=== PATIENT | female | born 1980 | race Caucasian/White ===

== ENCOUNTER 2016-06-12 23:20 | Emergency (ER) | payer OTHER ==
[~2016-06-12] VITALS: Ht 180.3 cm; Wt 68.0 kg
[~2016-06-12 23:20] MED LIST: ALBUTEROL0.09 MG/A2 INH; AMOXICILLIN500 MG PO; ATARAX,VISTARIL50 MG PO; BENADRYL25 M2 PO; CARBIDOPA/LEVOD1 TA1 PO; CEFADROXIL500 M1 PO; CIPROFLOXACIN500 MG PO; DELTASONE20 MG PO; DIFLUCAN150 MG PO; MOTRIN800 MG PO; PROAIR HFA0.09 MG/AC IH; ROBITUSSIN-AC 160 ML PO; SEPTRA DS 800 M1 TAB PO; ULTRAM50 MG PO; VIBRAMYCIN100 MG PO; VICODIN 5/500 505 MG PO; ZOFRAN 4 MG ED2 TAB PO
[2016-06-12 23:26] VITALS: BP 152/94
[2016-06-12] MEDS ORDERED: SUBOXONE 8 MG-1 EACH SL (23:27)
== END 2016-06-13 00:24 | disposition home or self-care (01) ==
LOC: ED 23:20
DX: S00.83XA Contusion of other part of head, initial encounter (principal); M54.2 Cervicalgia; F19.10 Other psychoactive substance abuse, uncomplicated; F17.200 Nicotine dependence, unspecified, uncomplicated; Z79.899 Other long term (current) drug therapy; Y04.0XXA Assault by unarmed brawl or fight, initial encounter; Y93.9 Activity, unspecified; Y92.091 Bathroom in other non-institutional residence as the place of occurrence of the external cause; Y99.9 Unspecified external cause status

== ENCOUNTER 2016-08-29 14:51 | Inpatient (IN) | payer OTHER ==
[~2016-08-29] VITALS: Ht 180.3 cm; Wt 74.4 kg
[~2016-08-29 14:51] MED LIST changes: +SUBOXONE 8 MG-1 EACH SL
[2016-08-29 15:00] VITALS: BP 127/84
[2016-08-29] MEDS ORDERED: CLINDAMYCIN150 MG PO (15:20)
[2016-08-29 17:27] LABS: BASO % 0.7 % (0.0-1.0); EOS # 0.2 10*3/uL (0.0-0.4); EOS % 2.9 % (1.0-4.0); HEMATOCRIT 37.2 % (37.0-47.0); HEMOGLOBIN 12.2 g/dl (12.0-16.0); LYMPH # 1.5 10*3/uL (1.3-4.4); MEAN CELL VOLUME 97.6 fl (81.0-99.0); MEAN CORPUSCULAR HGB CONC 32.8 g/dl (33.0-37.0); MEAN PLATELET VOLUME 9.6 fl (9.6-12.3); MONO # 0.7 10*3/uL (0.1-1.0); MONO % 12.5 % (3.0-9.0); NEUT # 3.2 10*3/uL (2.3-7.9); NEUT % 57.7 % (47.0-73.0); PLATELET COUNT AUTOMATED 250 10*3/uL (130-400); RED BLOOD COUNT 3.81 10*6/uL (4.10-5.10); RED CELL DISTRI WIDTH 14.1 % (0-14.5); WHITE BLOOD COUNT 5.6 10*3/uL (4.8-10.8)
[2016-08-29 17:45] LABS: ALBUMIN 3.4 gm/dl (3.1-4.5); ALKALINE PHOSPHATASE 94 U/L (45-117); BILIRUBIN, TOTAL 0.4 mg/dl (0.2-1.0); BUN 7 mg/dl (7-24); CARBON DIOXIDE 23 mmol/L (21-32); CHLORIDE 106 mmol/L (98-107); EST GLOM FILT AFRICAN AMERICAN > 60 ml/min; GLUCOSE 102 mg/dL (65-99); POTASSIUM 3.9 mmol/L (3.5-5.1); SGOT/AST 71 IU/L (3-35); SODIUM 140 mmol/L (136-145)
[2016-08-29 17:46] LABS: SGPT/ALT 57 U/L (12-78)
[2016-08-29 20:07] VITALS: BP 127/84
[2016-08-29 20:14] VITALS: BP 116/69
[2016-08-30] VITALS: BP 129/70
[2016-08-30 08:10] VITALS: BP 121/70
[2016-08-30 12:19] VITALS: BP 121/77
[2016-08-30 16:10] VITALS: BP 114/77
[2016-08-30 19:53] VITALS: BP 131/81
[2016-08-31] VITALS: BP 106/65
[2016-08-31 07:01] LABS: BASO # 0.1 10*3/uL (0.0-0.1); BASO % 0.9 % (0.0-1.0); EOS # 0.3 10*3/uL (0.0-0.4); EOS % 4.4 % (1.0-4.0); HEMATOCRIT 34.1 % (37.0-47.0); LYMPH # 2.3 10*3/uL (1.3-4.4); LYMPH % 40.3 % (27.0-41.0); MEAN CELL VOLUME 98.3 fl (81.0-99.0); MEAN CORPUSCULAR HGB 31.7 pg (27.0-31.0); MEAN CORPUSCULAR HGB CONC 32.3 g/dl (33.0-37.0); MEAN PLATELET VOLUME 10.4 fl (9.6-12.3); MONO # 0.6 10*3/uL (0.1-1.0); MONO % 11.2 % (3.0-9.0); NEUT # 2.5 10*3/uL (2.3-7.9); NEUT % 42.8 % (47.0-73.0); PLATELET COUNT AUTOMATED 225 10*3/uL (130-400); RED BLOOD COUNT 3.47 10*6/uL (4.10-5.10); RED CELL DISTRI WIDTH 14.3 % (0-14.5); WHITE BLOOD COUNT 5.7 10*3/uL (4.8-10.8)
[2016-08-31 07:13] LABS: ALBUMIN 2.8 gm/dl (3.1-4.5); ALKALINE PHOSPHATASE 70 U/L (45-117); BILIRUBIN, TOTAL 0.2 mg/dl (0.2-1.0); BUN 6 mg/dl (7-24); CARBON DIOXIDE 22 mmol/L (21-32); CHLORIDE 114 mmol/L (98-107); EST GLOM FILT AFRICAN AMERICAN > 60 ml/min; GLUCOSE 84 mg/dL (65-99); POTASSIUM 4.2 mmol/L (3.5-5.1); SGOT/AST 27 IU/L (3-35); SGPT/ALT 35 U/L (12-78); SODIUM 147 mmol/L (136-145); TOTAL PROTEIN 6.8 gm/dL (6.4-8.2); VANCOMYCIN TROUGH 13.6 ug/mL (10-20)
[2016-08-31 08:00] VITALS: BP 102/78
[2016-08-31 12:00] VITALS: BP 120/77
[2016-08-31] MEDS ORDERED: CLINDAMYCIN HC300 MG PO (14:15)
[2016-09-03 10:23] LABS: HEPATITIS C VIRUS ANTIBODY >11.0 s/co (0.0-0.9)
== END 2016-08-31 14:57 | disposition home or self-care (01) | DRG 871 ==
LOC: ED 14:51 → EDHOLD 17:47 → 4E 18:27
PROVIDERS: Internal Medicine; Nurse Practitioner Family
DX: A41.9 Sepsis, unspecified organism (principal); E43 Unspecified severe protein-calorie malnutrition; L03.211 Cellulitis of face; R00.1 Bradycardia, unspecified; F17.210 Nicotine dependence, cigarettes, uncomplicated; J45.909 Unspecified asthma, uncomplicated; R03.0 Elevated blood-pressure reading, without diagnosis of hypertension; R73.9 Hyperglycemia, unspecified; Z71.6 Tobacco abuse counseling; Z86.718 Personal history of other venous thrombosis and embolism; Z82.49 Family history of ischemic heart disease and other diseases of the circulatory system; Z80.8 Family history of malignant neoplasm of other organs or systems; S02.401D Maxillary fracture, unspecified side, subsequent encounter for fracture with routine healing

== ENCOUNTER 2016-09-23 10:57 | Emergency (ER) | payer OTHER ==
[~2016-09-23] VITALS: Wt 68.0 kg
[~2016-09-23 10:57] MED LIST changes: +CLINDAMYCIN HC300 MG PO; +CLINDAMYCIN150 MG PO
[2016-09-23 11:40] VITALS: BP 126/77
[2016-09-23 12:44] LABS: BILIRUBIN NEGATIVE (NEGATIVE); BLOOD NEGATIVE (NEGATIVE); CLARITY CLEAR (CLEAR); COLOR YELLOW (YELLOW); GLUCOSE NEGATIVE (NEGATIVE); KETONE NEGATIVE (NEGATIVE); LEUKO ESTERASE NEGATIVE (NEGATIVE); NITRITE NEGATIVE (NEGATIVE); PROTEIN NEGATIVE (NEGATIVE); SPECIFIC GRAVITY 1.015 (1.005-1.030); UROBILINOGEN 0.2 E.U./dl (0.2-1.0)
[2016-09-23 12:55] LABS: BACTERIA TRACE
[2016-09-23 12:56] LABS: URINE REFLEX COMMENT NO (NO); WBC 0-2 wbc/hpf (0-5)
[2016-09-23 12:59] LABS: BASO % 0.8 % (0.0-1.0); EOS # 0.1 10*3/uL (0.0-0.4); EOS % 2.5 % (1.0-4.0); HEMATOCRIT 38.5 % (37.0-47.0); HEMOGLOBIN 12.8 g/dl (12.0-16.0); LYMPH # 2.1 10*3/uL (1.3-4.4); MEAN CELL VOLUME 95.5 fl (81.0-99.0); MEAN CORPUSCULAR HGB 31.8 pg (27.0-31.0); MEAN CORPUSCULAR HGB CONC 33.2 g/dl (33.0-37.0); MEAN PLATELET VOLUME 10.2 fl (9.6-12.3); MONO # 0.7 10*3/uL (0.1-1.0); MONO % 13.6 % (3.0-9.0); NEUT # 2.2 10*3/uL (2.3-7.9); NEUT % 41.9 % (47.0-73.0); PLATELET COUNT AUTOMATED 274 10*3/uL (130-400); RED BLOOD COUNT 4.03 10*6/uL (4.10-5.10); RED CELL DISTRI WIDTH 12.6 % (0-14.5); WHITE BLOOD COUNT 5.2 10*3/uL (4.8-10.8)
[2016-09-23 13:14] LABS: ALBUMIN 3.3 gm/dl (3.1-4.5); ALKALINE PHOSPHATASE 73 U/L (45-117); BILIRUBIN, TOTAL 0.2 mg/dl (0.2-1.0); BUN 11 mg/dl (7-24); CARBON DIOXIDE 21 mmol/L (21-32); CHLORIDE 110 mmol/L (98-107); EST GLOM FILT AFRICAN AMERICAN > 60 ml/min; GLUCOSE 69 mg/dL (65-99); POTASSIUM 4.6 mmol/L (3.5-5.1); SGOT/AST 52 IU/L (3-35); SGPT/ALT 33 U/L (12-78); SODIUM 143 mmol/L (136-145)
== END 2016-09-23 15:39 | disposition home or self-care (01) ==
LOC: ED 10:57
PROVIDERS: Nurse Practitioner Family
DX: R51 Headache (principal); R40.0 Somnolence; F19.10 Other psychoactive substance abuse, uncomplicated; F17.200 Nicotine dependence, unspecified, uncomplicated; J45.909 Unspecified asthma, uncomplicated; Z90.89 Acquired absence of other organs; Z86.718 Personal history of other venous thrombosis and embolism; Z79.899 Other long term (current) drug therapy

== ENCOUNTER 2016-10-01 09:45 | Emergency (ER) | payer OTHER ==
[~2016-10-01] VITALS: Wt 68.0 kg
[2016-10-01 09:56] VITALS: BP 132/84
[2016-10-01 10:42] LABS: BASO # 0.1 10*3/uL (0.0-0.1); EOS # 0.3 10*3/uL (0.0-0.4); EOS % 3.5 % (1.0-4.0); HEMATOCRIT 36.7 % (37.0-47.0); HEMOGLOBIN 12.2 g/dl (12.0-16.0); LYMPH # 2.7 10*3/uL (1.3-4.4); LYMPH % 38.4 % (27.0-41.0); MEAN CELL VOLUME 95.1 fl (81.0-99.0); MEAN CORPUSCULAR HGB 31.6 pg (27.0-31.0); MEAN CORPUSCULAR HGB CONC 33.2 g/dl (33.0-37.0); MONO # 0.6 10*3/uL (0.1-1.0); NEUT # 3.4 10*3/uL (2.3-7.9); NEUT % 47.8 % (47.0-73.0); PLATELET COUNT AUTOMATED 284 10*3/uL (130-400); RED BLOOD COUNT 3.86 10*6/uL (4.10-5.10); RED CELL DISTRI WIDTH 12.8 % (0-14.5); WHITE BLOOD COUNT 7.1 10*3/uL (4.8-10.8)
[2016-10-01 11:00] LABS: ALBUMIN 3.3 gm/dl (3.1-4.5); ALKALINE PHOSPHATASE 64 U/L (45-117); BILIRUBIN, TOTAL 0.2 mg/dl (0.2-1.0); BUN 8 mg/dl (7-24); CARBON DIOXIDE 25 mmol/L (21-32); CHLORIDE 110 mmol/L (98-107); EST GLOM FILT AFRICAN AMERICAN > 60 ml/min; GLUCOSE 88 mg/dL (65-99); POTASSIUM 4.3 mmol/L (3.5-5.1); SGOT/AST 43 IU/L (3-35); SGPT/ALT 31 U/L (12-78); SODIUM 143 mmol/L (136-145); TOTAL PROTEIN 7.7 gm/dL (6.4-8.2)
[2016-10-01 11:07] LABS: TROPONIN I < 0.015 ng/ml (<0.045)
[2016-10-01 12:20] LABS: BILIRUBIN NEGATIVE (NEGATIVE); BLOOD NEGATIVE (NEGATIVE); CLARITY CLOUDY (CLEAR); COLOR YELLOW (YELLOW); GLUCOSE NEGATIVE (NEGATIVE); KETONE NEGATIVE (NEGATIVE); LEUKO ESTERASE NEGATIVE (NEGATIVE); NITRITE NEGATIVE (NEGATIVE); PROTEIN NEGATIVE (NEGATIVE); SPECIFIC GRAVITY 1.025 (1.005-1.030); UROBILINOGEN 0.2 E.U./dl (0.2-1.0)
[2016-10-01 12:30] LABS: BACTERIA 1+; URINE REFLEX COMMENT NO (NO)
== END 2016-10-01 12:46 | disposition home or self-care (01) ==
LOC: ED 09:45
PROVIDERS: Nurse Practitioner Family
DX: F41.9 Anxiety disorder, unspecified (principal); R51 Headache; R07.89 Other chest pain; R11.2 Nausea with vomiting, unspecified; F17.200 Nicotine dependence, unspecified, uncomplicated; Z79.899 Other long term (current) drug therapy

== ENCOUNTER 2017-03-12 11:13 | Emergency (ER) | payer OTHER ==
[~2017-03-12] VITALS: Wt 71.2 kg
[2017-03-12 11:23] VITALS: BP 107/77
[2017-03-12 11:54] LABS: BILIRUBIN NEGATIVE (NEGATIVE); BLOOD 3+ (NEGATIVE); CLARITY CLEAR (CLEAR); COLOR YELLOW (YELLOW); GLUCOSE NEGATIVE (NEGATIVE); KETONE NEGATIVE (NEGATIVE); LEUKO ESTERASE NEGATIVE (NEGATIVE); NITRITE NEGATIVE (NEGATIVE); PH 5.5 (5.0-9.0); UROBILINOGEN 0.2 E.U./dl (0.2-1.0)
[2017-03-12] MEDS ORDERED: CYCLOBENZAPRINE5 M3 PO (14:48)
== END 2017-03-12 11:50 | disposition home or self-care (01) ==
LOC: ED 11:13
PROVIDERS: Nurse Practitioner
DX: S06.0X0A Concussion without loss of consciousness, initial encounter (principal); S39.92XA Unspecified injury of lower back, initial encounter; S19.9XXA Unspecified injury of neck, initial encounter; M25.512 Pain in left shoulder; F17.200 Nicotine dependence, unspecified, uncomplicated; W11.XXXA Fall on and from ladder, initial encounter; Y93.89 Activity, other specified; Y92.89 Other specified places as the place of occurrence of the external cause; Y99.8 Other external cause status

== ENCOUNTER 2017-03-19 10:04 | Emergency (ER) | payer OTHER ==
[~2017-03-19] VITALS: Ht 180.3 cm; Wt 70.3 kg
[~2017-03-19 10:04] MED LIST changes: +CYCLOBENZAPRINE5 M3 PO
[2017-03-19 10:14] VITALS: BP 135/43
[2017-03-19] MEDS ORDERED: 'PARAFON FORTE500 M1 PO (12:09)
[2017-03-19] MEDS ORDERED: NAPROSYN500 MG PO (12:09)
== END 2017-03-19 12:26 | disposition home or self-care (01) ==
LOC: ED 10:04
DX: S13.9XXA Sprain of joints and ligaments of unspecified parts of neck, initial encounter (principal); M79.622 Pain in left upper arm; R03.0 Elevated blood-pressure reading, without diagnosis of hypertension; F17.200 Nicotine dependence, unspecified, uncomplicated; Z86.718 Personal history of other venous thrombosis and embolism; W11.XXXA Fall on and from ladder, initial encounter; Y93.89 Activity, other specified; Y92.9 Unspecified place or not applicable; Y99.9 Unspecified external cause status

== ENCOUNTER → 2017-06-18 | Outpatient (CLI) | payer OTHER ==
[~2017-06-18] MED LIST changes: +'PARAFON FORTE500 M1 PO; +NAPROSYN500 MG PO
== END | disposition home or self-care (01) ==
LOC: RESCLI 02:14
DX: Z00.8 Encounter for other general examination (principal); L98.491 Non-pressure chronic ulcer of skin of other sites limited to breakdown of skin; F41.9 Anxiety disorder, unspecified; J45.909 Unspecified asthma, uncomplicated; Z72.0 Tobacco use; Z71.6 Tobacco abuse counseling

== ENCOUNTER 2017-11-29 19:55 | Emergency (ER) | payer OTHER ==
[~2017-11-29] VITALS: Ht 177.8 cm
[2017-11-29 20:46] LABS: HEMATOCRIT 30.8 % (37.0-47.0); HEMOGLOBIN 10.5 g/dl (12.0-16.0); MEAN CELL VOLUME 91.7 fl (81.0-99.0); MEAN CORPUSCULAR HGB 31.3 pg (27.0-31.0); MEAN CORPUSCULAR HGB CONC 34.1 g/dl (33.0-37.0); MEAN PLATELET VOLUME 10.3 fl (9.6-12.3); PLATELET COUNT AUTOMATED 266 10*3/uL (130-400); RED BLOOD COUNT 3.36 10*6/uL (4.10-5.10); RED CELL DISTRI WIDTH 14.2 % (0-14.5); WHITE BLOOD COUNT 11.3 10*3/uL (4.8-10.8)
[2017-11-29 21:01] LABS: ALBUMIN 2.2 gm/dl (3.1-4.5); ALKALINE PHOSPHATASE 59 U/L (45-117); BUN 16 mg/dl (7-24); CHLORIDE 99 mmol/L (98-107); CREATININE 1.33 mg/dL (0.55-1.02); LIPASE 258 U/L (73-393); POTASSIUM 3.2 mmol/L (3.5-5.1); SGOT/AST 33 IU/L (3-35); SGPT/ALT 29 U/L (12-78); SODIUM 132 mmol/L (136-145); TOTAL PROTEIN 7.2 gm/dL (6.4-8.2)
[2017-11-29 21:03] LABS: B-hCG (QUALITATIVE) NEGATIVE (NEGATIVE)
[2017-11-29 21:14] LABS: ATYPICAL LYMPHS 2 % (0-0); PLATELET SUFFICIENCY NORMAL (NORMAL); TOTAL CELLS COUNTED 100 #CELLS
[2017-11-29 21:15] LABS: TOXIC GRANULATION SLIGHT
[2017-11-29 21:45] LABS: BILIRUBIN NEGATIVE (NEGATIVE); BLOOD 2+ (NEGATIVE); CLARITY SL CLOUDY (CLEAR); COLOR YELLOW (YELLOW); GLUCOSE NEGATIVE (NEGATIVE); KETONE NEGATIVE (NEGATIVE); LEUKO ESTERASE 2+ (NEGATIVE); NITRITE NEGATIVE (NEGATIVE); UROBILINOGEN 0.2 E.U./dl (0.2-1.0)
[2017-11-29 21:50] LABS: BACTERIA 2+; WBC TNTC wbc/hpf (0-5)
[2017-11-29] MEDS ORDERED: LEVAQUIN750 M1 PO (23:27)
[2017-11-29] MEDS ORDERED: K-TAB20 MEQ PO (23:28)
[2017-11-29 23:51] VITALS: BP 112/60
== END 2017-11-30 00:10 | disposition home or self-care (01) ==
LOC: ED 19:55
PROVIDERS: Physician Assistant
DX: N12 Tubulo-interstitial nephritis, not specified as acute or chronic (principal); Z90.89 Acquired absence of other organs

== ENCOUNTER 2018-12-06 15:54 | Inpatient (IN) | payer OTHER ==
[~2018-12-06] VITALS: Ht 180.3 cm; Wt 54.4 kg
--- NOTE | ~2018-12-06 | EKG ---
[place], [place] ELECTROCARDIOGRAM REPORT NAME: SAGRARIO GAMEZ UNIT #: [id number] ROOM: 516 DOCTOR: MARCK DRAFT REPORT BIRTHDATE: [birth year] [facility] Test Date: 2018-12-06 Test Time: 19:55:33 Pat Name: SAGRARIO GAMEZ Department: Room: 51 1 Gender: F Rv Mechanic: Isidro Somers : 1980 Requested By: CARRIE WILDE Order Number: [id number] Reading MD: Ethan Mckeon MD Measurements Intervals [place] Rate: 75 P: 46 NV: 154 QRS: 48 QRSD: 93 T: 39 QT: 405 QTc: 453 Interpretive Statements Sinus rhythm Baseline wander in lead(s) V3 Compared to ECG 10/05/2018 18:50:03 Myocardial infarct finding no longer present Electronically Signed On 12-09-2018 12:06:09 PDT by Ethan Mckeon MD CM:EKGRPT:ELECTROCARDIOGRAM REPORT [id number] CARRIE ACHARYA DRAFT REPORT CARRIE WILDE
[~2018-12-06 15:54] MED LIST changes: +K-TAB20 MEQ PO; +LEVAQUIN750 M1 PO
[2018-12-06 15:56] VITALS: BP 104/59
[2018-12-06 17:15] LABS: BILIRUBIN NEGATIVE (NEGATIVE); BLOOD NEGATIVE (NEGATIVE); CLARITY CLEAR (CLEAR); COLOR YELLOW (YELLOW); GLUCOSE NEGATIVE (NEGATIVE); KETONE NEGATIVE (NEGATIVE); LEUKO ESTERASE NEGATIVE (NEGATIVE); NITRITE NEGATIVE (NEGATIVE); URINE AMPHETAMINES < 1000 (1000ng/ml); URINE BARBITURATES < 200 (200ng/ml); URINE BENZODIAZEPINES < 200 (200ng/ml); URINE CANNABINOIDS (THC) < 50 (50ng/ml); URINE COCAINE > 300 (300ng/ml); URINE METHADONE < 300 (300ng/ml); URINE OPIATES > 300 (300ng/ml)
[2018-12-06 17:21] LABS: BACTERIA 1+; EPITHELIAL CELLS 21-30
[2018-12-06 17:23] LABS: URINE PHENCYCLIDINE < 25 (25ng/ml)
[2018-12-06 17:27] LABS: BASO # 0.1 10*3/uL (0.0-0.1); BASO % 0.6 % (0.0-1.0); EOS # 0.3 10*3/uL (0.0-0.4); EOS % 2.1 % (1.0-4.0); HEMATOCRIT 36.3 % (37.0-47.0); HEMOGLOBIN 11.3 g/dl (12.0-16.0); LYMPH # 2.7 10*3/uL (1.3-4.4); LYMPH % 20.8 % (27.0-41.0); MEAN CELL VOLUME 90.5 fl (81.0-99.0); MEAN CORPUSCULAR HGB 28.2 pg (27.0-31.0); MEAN CORPUSCULAR HGB CONC 31.1 g/dl (33.0-37.0); MEAN PLATELET VOLUME 10.1 fl (9.6-12.3); MONO # 1.1 10*3/uL (0.1-1.0); MONO % 8.2 % (3.0-9.0); NEUT # 8.8 10*3/uL (2.3-7.9); NEUT % 67.8 % (47.0-73.0); PLATELET COUNT AUTOMATED 267 10*3/uL (130-400); RED BLOOD COUNT 4.01 10*6/uL (4.10-5.10); RED CELL DISTRI WIDTH 12.8 % (0-14.5)
[2018-12-06 17:36] VITALS: BP 110/68
[2018-12-06 17:44] LABS: ALBUMIN 2.9 gm/dl (3.1-4.5); BUN 11 mg/dl (7-24); CHLORIDE 104 mmol/L (98-107); POTASSIUM 4.1 mmol/L (3.5-5.1); SODIUM 135 mmol/L (136-145)
[2018-12-06 17:48] LABS: ALKALINE PHOSPHATASE 72 U/L (45-117); CREATININE 1.09 mg/dL (0.55-1.02); SGOT/AST 13 IU/L (3-35); SGPT/ALT 19 U/L (12-78)
[2018-12-06 18:03] VITALS: BP 95/44
--- NOTE | 2018-12-06 18:45 | NUR ---
A 38, admitted to 5E, under the services of VERONA Lozoya DO with a diagnosis of ABSCESS, CELLULITIS,SEPSIS. Chief complaint is ABSCESS TO LEFT AXILLA. Patient arrived via wheel chair from ER. Monitor applied. Initial assessment completed. Vital signs taken and recorded. VERONA LOZOYA DO notified of admission to the unit. Orders received. See assessment for past medical history, medications and allergies. Patient and/or family oriented to unit. [facility] visitation policy reviewed. Clothing/patient valuable form completed. ARBEN HAAS
[2018-12-06 20:00] VITALS: BP 95/55
--- NOTE | 2018-12-06 20:07 | NUR ---
NOTIFIED OF PT'S REQUEST FOR NICOTROL INHALER. NEW ORDER RECEIVED FOR NICOTROL INHALER. ALSO NOTIFIED OF PT REFUSING FLUIDS. ALSO DISCUSSED PATIENT SNORTING HEROIN DAILY & FORMER USE OF IV HEROIN (QUIT TWO WEEKS AGO) PER PT. AWARE THAT NO PRNs/SUBUTEX TAPER ORDERED. NO NEW ORDERS RECEIVED.
[2018-12-06 20:15] VITALS: BP 107/48
--- NOTE | 2018-12-06 20:39 | NUR ---
ATTEMPTED TO CALL AT THIS TIME REGARDING CONSULT. NO ANSWER. WILL TRY AGAIN AT LATER TIME.
--- NOTE | 2018-12-06 20:59 | NUR ---
PT GIVEN NICOTROL INHALER AT THIS TIME PER REQUEST. PT DROWSY, BUT EASILY AROUSABLE. CRACKERS, PEANUT BUTTER, AND ICE CREAM ALSO PROVIDED PER REQUEST. WILL MONITOR.
--- NOTE | 2018-12-06 21:32 | NUR ---
ATTEMPTED TO CALL AGAIN. NO ANSWER.
--- NOTE | 2018-12-06 21:33 | NUR ---
ATTEMPTED TO CALL FOR A THIRD TIME. NO ANSWER. BRIEF MESSAGE LEFT WITH CALL BACK NUMBER TO 5TH FLOOR.
--- NOTE | 2018-12-06 21:38 | NUR ---
PT REFUSING PASSCODE.
--- NOTE | 2018-12-06 22:33 | NUR ---
PT ASLEEP IN BED AT THIS TIME. NO S/S OF DISTRESS NOTED. WILL MONITOR. CALL LIGHT IN REACH.
[2018-12-07] VITALS (7 sets, daily range): BP systolic 88–115; BP diastolic 40–64
--- NOTE | 2018-12-07 03:41 | NUR ---
PATIENT REMAINS VERY DROWSY. PATIENT RESPONDS TO VERBAL STIMULI, BUT ONLY OPENS EYES WITH VERY LOUD NOISES. PATIENT BECAME VERY AGITATED WITH RN WHEN LOUDER TONE OF VOICE WAS USED. RN APOLOGIZED & EXPLAINED THAT SHE APPEARED VERY DROWSY/ALMOST LETHARGIC & THAT RN WAS JUST TRYING TO MAKE SURE SHE WAS ABLE TO BE AWAKENED. PT ALREADY FALLING BACK TO SLEEP. IV ABX INFUSING PER ORDER. WILL MONITOR. CALL LIGHT IN REACH.
--- NOTE | 2018-12-07 05:59 | NUR ---
SAGRARIO GAMEZ Radha [id number] Please refer to the physician's history and physical for past medical history, comorbid conditions, and allergies. Diagnosis: ABSCESS CELLULITIS SEPSIS Tyshawn Score: , WOUND DESCRIPTIONS: Wound Number: 1 Location of the wound: Left axilla Type of wound: abscess Thickness: Full Size: 1.5cm x 3.0cm x 0.1cm Tunneling: none Undermining: none Sinus Tract: none Presence of Exudate: Serous Amount: Light Color: white, yellow Odor: None Periwound Skin Appearance: Erythema, firmness Wound edges: approximated Pain (associated with wound): very tender to touch How does patient state this happened? pt stated this started 10 days ago just hurting and then 5 days ago a pimple started and she popped it. She stated if she feels that something is there she will pick it. Wound Number: 2 Intact scab noted to left upper arm. No drainage noted at time of assessment. No reddness noted at time of assesment. Patient stated if she feels that something is there she will pick it. Wound Number: 3 Intact scab noted to left upper leg. No drainage noted at time of assessment. No reddness noted at time of assesment. Patient stated if she feels that something is there she will pick it. Wound Number: 4 Location of the wound: right knee Thickness: Partial Size: 1.0cmx 0.9cm x 0.1cm Tunneling: none Undermining: none Sinus Tract: none Presence of Exudate: none Amount: None Color: Red Odor: None Periwound Skin Appearance: Normal Wound edges: approximated Pain (associated with wound): none at time of assessment How does patient state this happened? She stated if she feels that something is there she will pick it. Wound Number: 5 Intact scab noted to right upper leg. No drainage noted at time of assessment. No reddness noted at time of assesment. Patient stated if she feels that something is there she will pick it. Wound Number: 6 Intact scab noted to right hand. No drainage noted at time of assessment. No reddness noted at time of assesment. Patient stated if she feels that something is there she will pick it. Wound Number: 7 Location of the wound: mid upper back proximal Thickness: Full Size: 0.5cm x 0.9cm x 0.1cm Tunneling: none Undermining: none Sinus Tract: none Presence of Exudate: Serous Amount: Light Color: Yellow, red Odor: None Periwound Skin Appearance: Normal Wound edges: approximated Pain (associated with wound): none at time of assessment How does patient state this happened? pt stated she had a pimple and popped it. She stated the reason why it is draining is because she is in to much pain to be able to position off of her back at this time. Wound Number: 8 Intact scab noted to mid upper back distal. No drainage noted at time of assessment. No reddness noted at time of assesment. Patient stated if she feels that something is there she will pick it. Surface the patient is resting on: Isoflex SKIN PREVENTION RECOMMENDATION: 1. Pressure redistribution support surface as appropriate 2. Elevate heels 3. Remove boots/TEDS every shift and reapply 4. Head of bed 30 degrees as tolerated 5. Assess nutrition and hydration 6. Manage moisture 7. Avoid the use of containment devices while in bed 8. Use absorptive products on surfaces limit layers of linens on bed 9. Turn and reposition every 1-2 hours in bed and every 1 hour in chair as tolerated 10. Weight shifts every 15 minutes while up in chair 11. Offloading with pillows or device to keep heels elevated off bed 12. Monitor skin at least every shift 13. Inspect under medical devices twice a day WOUND TREATMENT RECOMMENDATIONS: Heel raiser pro boots while in bed to bilateral feet. Dr. Solis is already on consult for area to left axlla. Imaging studies to left axilla due to open area and erythema extending to breast and back. Full thickness guidelines: cleanse left axilla, and mid upper back proximal with nss and apply sureprep around the wound therahoney to wound bed and cover with optifoam gentle daily and prn for soiling. Partial thickness guidelines: cleanse right knee with nss and apply sureprep around the wound therahoney to wound bed and cover with optifoam gentle.
--- NOTE | 2018-12-07 06:45 | NUR ---
NOTIFIED OF PATIENT'S C/O PAIN. ALSO DISCUSSED HX OF HEROIN ABUSE & NO PRN MEDICATIONS. NEW ORDERS TO FOLLOW. OKAY TO USE R LEG IV PER .
--- NOTE | 2018-12-07 06:54 | NUR ---
PT REFUSING AM BLOODWORK. PATIENT ALLOWED FOR 2 ATTEMPTS TO DRAW BLOOD, BUT IS NOW REFUSING AFTER THOSE ATTEMPTS WERE UNSUCCESSFUL.
--- NOTE | 2018-12-07 08:08 | NUR ---
PATIENT C/O RESTLESSNESS, MUSCLE CRAMPING, AND ANXIETY. MEDICATED WITH REQUIP, ROBAXIN, AND VISTERIL PRESCRIBED WITH A SMALL SIP OF WATER. WILL MONITOR FOR EFFECTIVENESS.
--- NOTE | 2018-12-07 08:10 | NUR ---
DR MONET IN TO SEE PATIENT. PATIENT WILL BE GOING TO SURGERY FOR I&D OF LEFT AXILLA ABCESS.
--- NOTE | 2018-12-07 08:25 | NUR ---
PATIENT TRANSPORTED TO SURGERY.
--- NOTE | 2018-12-07 08:55 | NUR ---
Chantel GREENE notified of wound care recommendations.
--- NOTE | 2018-12-07 10:07 | NUR ---
SPOKE WITH DR MONET AFTER I&D PERFORMED. PACKED WITH AQUACEL. PATIENT TO F/U IN WOUND CLINIC AFTER DISCHARGE. HOME WITH ANTIBIOTICS. VERONICA CORTEZ.
--- NOTE | 2018-12-07 10:28 | NUR ---
PATIENT RETURNED TO FLOOR. VERONICA STONE IN WITH PATIENT.
[2018-12-07] MEDS ORDERED: Motrin,Rufen800 MG PO (11:29)
[2018-12-07] MEDS ORDERED: AUGMENTIN 875875 MG PO (11:29)
--- NOTE | 2018-12-07 12:21 | NUR ---
Manager Technical Sales in to talk to patient. Patient states lives at HOME with FAMILY. There are FEW steps in the home. Physician: NONE Pharmacy: [facility] Home health services: NONE Patient's level of ADLs: INDEPENDENT Patient has working utilities: YES DME: NONE Follow-up physician's appointment after d/c: LIST PROVIDED BY HOSPITALIST OFFICE OF PCP'S Does patient want to access PORTAL?: NO Discharge plan PT LIVES AT HOME AND IS INDEPENDENT IN HER CARE. DENIES ANY NEEDS ON DISCHARGE. WILL CONTINUE TO FOLLOW. STATES SHE WILL HAVE A RIDE HOME. JOHANNE CHANG
--- NOTE | 2018-12-07 12:45 | NUR ---
PATIENT REFUSING DISCHARGE PICTURES.
--- NOTE | 2018-12-07 12:45 | NUR ---
PATIENT IV REMOVED AND DISCHARGE PAPERS SIGNED. PATIENT WAITING FOR RIDE.
--- NOTE | 2018-12-07 13:35 | NUR ---
Discharge instructions reviewed with patient/family. Patient receptive and verbalizes understanding. Follow-up care arranged. Written instructions given to patient/family. PATIENT UNDERSTAND DISCHARGE INSTRUCTIONS. MIRANDA CHANG
== END 2018-12-07 13:35 | disposition home or self-care (01) | DRG 872 ==
LOC: ED 15:54 → EDHOLD 18:08 → 5E 18:08
PROVIDERS: Nurse Practitioner Family; ADMIT Emergency Medicine
PROC: 0H9CXZZ Drainage of Left Upper Arm Skin, External Approach (ICD-10-PCS; principal; 2018-12-07)
DX: A41.9 Sepsis, unspecified organism (principal); E44.0 Moderate protein-calorie malnutrition; L03.112 Cellulitis of left axilla; L02.412 Cutaneous abscess of left axilla; F11.20 Opioid dependence, uncomplicated; Z68.1 Body mass index [BMI] 19.9 or less, adult; F17.210 Nicotine dependence, cigarettes, uncomplicated; F41.9 Anxiety disorder, unspecified; J45.909 Unspecified asthma, uncomplicated; F19.10 Other psychoactive substance abuse, uncomplicated; F14.90 Cocaine use, unspecified, uncomplicated; Z79.899 Other long term (current) drug therapy; Z90.89 Acquired absence of other organs; Z82.49 Family history of ischemic heart disease and other diseases of the circulatory system; Z82.3 Family history of stroke; Z80.3 Family history of malignant neoplasm of breast; Z86.718 Personal history of other venous thrombosis and embolism; Z86.711 Personal history of pulmonary embolism

== ENCOUNTER 2018-12-25 12:24 | Inpatient (IN) | payer OTHER ==
[~2018-12-25] VITALS: Ht 180.3 cm; Wt 68.0 kg
--- NOTE | ~2018-12-25 | EKG ---
[place], [place] ELECTROCARDIOGRAM REPORT NAME: SAGRARIO GAMEZ UNIT #: [id number] ROOM: 422 DOCTOR: MARCK DRAFT REPORT BIRTHDATE: [birth year] [facility] Test Date: 2018-12-25 Test Time: 17:09:12 Pat Name: SAGRARIO GAMEZ Department: Room: 422 1 Gender: F Chinchilla Farmer: Natalia Zuñiga : 1980 Requested By: COURTNEY COLEMAN Order Number: [id number] Reading MD: Ethan Mckeon MD Measurements Intervals [place] Rate: 73 P: 55 [place]: 176 QRS: 56 QRSD: 84 T: 46 QT: 400 QTc: 441 Interpretive Statements Sinus rhythm Baseline wander in lead(s) V5 Compared to ECG 12/06/2018 19:55:33 No significant changes Electronically Signed On 12-26-2018 9:19:47 PDT by Ethan Mckeon MD CM:EKGRPT:ELECTROCARDIOGRAM REPORT [id number] COURTNEY COLEMAN EPIPHANY DRAFT REPORT COURTNEY COLEMAN
[~2018-12-25 12:24] MED LIST changes: +AUGMENTIN 875875 MG PO; +Motrin,Rufen800 MG PO
--- NOTE | 2018-12-25 14:10 | NUR ---
Time: 1409 A 38 year old FEMALE admitted to under services of GAURAV ENRIQUEZ DO. Pt. arrived via ambulatory from [place]. Chief complaint: OPIATE WITHDRAWAL. EDWARD TEMPLE
[2018-12-25 14:15] VITALS: BP 107/59
--- NOTE | 2018-12-25 14:46 | NUR ---
PATIENT MEETS [facility]. CINA=17. PATIENT WANTS TO GO TO [facility] IN [place] FOR THE VIVITROL SHOT. MS STAFF WILL SET APPOINTMENT FOR HER AFTERCARE PLAN. MEGHANA ZHANG B.A. SLURRY MIXER
[2018-12-25 15:07] LABS: BASO # 0.1 10*3/uL (0.0-0.1); BASO % 1.4 % (0.0-1.0); EOS # 0.5 10*3/uL (0.0-0.4); EOS % 6.4 % (1.0-4.0); HEMATOCRIT 37.6 % (37.0-47.0); HEMOGLOBIN 11.3 g/dl (12.0-16.0); LYMPH # 2.5 10*3/uL (1.3-4.4); LYMPH % 35.3 % (27.0-41.0); MEAN CELL VOLUME 90.4 fl (81.0-99.0); MEAN CORPUSCULAR HGB 27.2 pg (27.0-31.0); MEAN CORPUSCULAR HGB CONC 30.1 g/dl (33.0-37.0); MONO # 0.5 10*3/uL (0.1-1.0); MONO % 7.3 % (3.0-9.0); NEUT # 3.5 10*3/uL (2.3-7.9); NEUT % 49.3 % (47.0-73.0); PLATELET COUNT AUTOMATED 331 10*3/uL (130-400); RED BLOOD COUNT 4.16 10*6/uL (4.10-5.10); RED CELL DISTRI WIDTH 13.3 % (0-14.5)
[2018-12-25 15:19] LABS: BILIRUBIN NEGATIVE (NEGATIVE); BLOOD NEGATIVE (NEGATIVE); CLARITY CLOUDY (CLEAR); COLOR YELLOW (YELLOW); GLUCOSE NEGATIVE (NEGATIVE); KETONE NEGATIVE (NEGATIVE); LEUKO ESTERASE NEGATIVE (NEGATIVE); NITRITE NEGATIVE (NEGATIVE); SPECIFIC GRAVITY 1.015 (1.005-1.030); UROBILINOGEN 0.2 E.U./dl (0.2-1.0)
[2018-12-25 15:21] LABS: ALBUMIN 2.9 gm/dl (3.1-4.5); ALKALINE PHOSPHATASE 70 U/L (45-117); BUN 9 mg/dl (7-24); CHLORIDE 107 mmol/L (98-107); CREATININE 0.94 mg/dL (0.55-1.02); INTERNATIONAL NORM RATIO 0.9 (2.0-3.5); POTASSIUM 4.2 mmol/L (3.5-5.1); SGOT/AST 18 IU/L (3-35); SGPT/ALT 23 U/L (12-78); SODIUM 140 mmol/L (136-145); TOTAL PROTEIN 8.3 gm/dL (6.4-8.2)
[2018-12-25 15:22] LABS: ETHYL ALCOHOL < 3.0 mg/dl (<3)
[2018-12-25 15:25] LABS: BETA-HCG, QUANT < 1.0 mIU/mL (1-3)
[2018-12-25 15:33] LABS: BACTERIA 1+; WBC 0-2 wbc/hpf (0-5)
[2018-12-25 15:42] LABS: URINE AMPHETAMINES < 1000 (1000ng/ml); URINE BARBITURATES < 200 (200ng/ml); URINE BENZODIAZEPINES < 200 (200ng/ml); URINE CANNABINOIDS (THC) < 50 (50ng/ml); URINE COCAINE > 300 (300ng/ml); URINE METHADONE < 300 (300ng/ml); URINE OPIATES > 300 (300ng/ml)
[2018-12-25 15:45] LABS: URINE PHENCYCLIDINE < 25 (25ng/ml)
[2018-12-25 16:00] VITALS: BP 110/56
[2018-12-25 20:00] VITALS: BP 116/67
--- NOTE | 2018-12-25 20:30 | NUR ---
Patient reports the following symptoms of withdrawal: body aches, leg pain, nausea and HEROIN cravings. Patient given scheduled/PRN medication to control withdrawal symptoms. Close observation will be maintained.
--- NOTE | 2018-12-25 21:15 | NUR ---
PT STATES SHE IS FEELING BETTER. BED LOW. CALL SINGLETON IN REACH
[2018-12-26] VITALS: BP 108/67
--- NOTE | 2018-12-26 01:40 | NUR ---
24 HR chart check completed.
--- NOTE | 2018-12-26 04:30 | NUR ---
PT. REFUSED TO HAVE VITAL SIGNS DONE.
--- NOTE | 2018-12-26 07:42 | NUR ---
Routine meds given per order. Pt refused lovenox injection, states she is getting up and walking and doesn't have blood clots. I educationed pt that lovenox is for prevention of blood clots, pt states she doesnt want it. Vistaril, robaxin, requip, bentyl, zofran and motrin given per prn order and pt statements that she needs whatever PRN meds she can have for multiple symptoms of withdrawal.
[2018-12-26 08:00] VITALS: BP 114/76
--- NOTE | 2018-12-26 08:40 | NUR ---
Pt states that medication given earlier helped ease symptoms of withdrawal.
[2018-12-26 12:00] VITALS: BP 110/68
--- NOTE | 2018-12-26 14:09 | NUR ---
Medicated with robaxin, tylenol, vistaril, zofran, and bentyl per prn order and for pt request for whatever prn meds she can have for multiple symptoms of withdrawal.
--- NOTE | 2018-12-26 15:29 | NUR ---
Medicated with motrin per prn order and pt request for it. Pt states that medication earlier helped symptoms of withdrawal somewhat. States she did vomit earlier but still has an appetite and is hungry. Pt currently has a tray in room and is eating.
[2018-12-26 16:00] VITALS: BP 102/86
--- NOTE | 2018-12-26 16:45 | NUR ---
Pt states she is feeling better after medications.
[2018-12-26 20:00] VITALS: BP 102/65
--- NOTE | 2018-12-26 20:25 | NUR ---
REQUESTING NICOTROL INHALER. CALLED PHARMACY TO HAVE ONE SENT UP TO FLOOR.
--- NOTE | 2018-12-26 21:17 | NUR ---
PT. C/O PAIN, CRAMPS FEELING ANXIOUS. ROBAXIN, REQUIP, TYLENOL, VISTARIL AND TRAZADONE GIVEN PER ORDER FOR WITHDRAWL SYMPTOMS. SEE MAR
--- NOTE | 2018-12-26 22:15 | NUR ---
WITHDRAWL MEDICATION EFFECTIVE FOR ANXIETY, MUSCLE CRAMPS, PAIN PER PT.
[2018-12-27] VITALS: BP 91/51
--- NOTE | 2018-12-27 01:30 | NUR ---
24 HR chart check completed.
[2018-12-27 08:00] VITALS: BP 107/57
--- NOTE | 2018-12-27 09:00 | NUR ---
PT C/O OF RESTLESS LEGS, ANXIETY, MUSCLE CRAMPS AND GENERALIZED DISCOMFORT. GIVEN VISTARIL, ROBAXIN, MOTRIN AND BENTYL. WILL CONT TO MONITOR. CALL LIGHT IN REACH.
--- NOTE | 2018-12-27 10:00 | NUR ---
PRN'S EFF AT THIS TIME. WILL CONT TO MONITOR.
[2018-12-27 12:00] VITALS: BP 102/50
--- NOTE | 2018-12-27 15:38 | NUR ---
C/O NAUSEA, ABD CRAMPS AND LEFT FLANK PAIN OF 5/10. TYLENOL, ZOFRAN AND BENTYL GIVEN AT THIS TIME. WILL CONT TO MONITOR.
[2018-12-27 16:00] VITALS: BP 108/67
[2018-12-27 20:00] VITALS: BP 112/58
--- NOTE | 2018-12-27 20:05 | NUR ---
PATIENT WALKED OFF FLOOR WITH ALL BELONGINGS. PT DID NOT LET ANYONE KNOW SHE WAS LEAVING. SPOTTED BY RESPIRATORY THERAPIST LEAVING FLOOR. RN ATTEMPTED TO FIND PT & CALLED AUTOMOBILE RELOCATION ENGINEER TO SEE IF PT HAD WALKED BY. NO LUCK IN FINDING PT. RN NOTIFIED NURSING GARBAGE COLLECTOR & . AMA DISCHARGE TO BE COMPLETED PER POLICY.
== END 2018-12-27 20:05 | disposition left against medical advice (07) | DRG 894 ==
LOC: 4E 12:24
PROVIDERS: Registered Nurse; ADMIT Internal Medicine
DX: F11.23 Opioid dependence with withdrawal (principal); E44.0 Moderate protein-calorie malnutrition; J45.909 Unspecified asthma, uncomplicated; F41.9 Anxiety disorder, unspecified; F17.210 Nicotine dependence, cigarettes, uncomplicated; F19.10 Other psychoactive substance abuse, uncomplicated; F14.10 Cocaine abuse, uncomplicated; Z53.21 Procedure and treatment not carried out due to patient leaving prior to being seen by health care provider; Z86.718 Personal history of other venous thrombosis and embolism; Z86.711 Personal history of pulmonary embolism; Z71.6 Tobacco abuse counseling; Z90.89 Acquired absence of other organs; Z82.49 Family history of ischemic heart disease and other diseases of the circulatory system; Z79.899 Other long term (current) drug therapy; Z80.3 Family history of malignant neoplasm of breast; Z68.20 Body mass index [BMI] 20.0-20.9, adult

== ENCOUNTER 2019-02-05 15:49 | Inpatient (IN) | payer OTHER ==
[~2019-02-05] VITALS: Ht 180.3 cm; Wt 66.9 kg
--- NOTE | ~2019-02-05 | EKG ---
[place], [place] ELECTROCARDIOGRAM REPORT NAME: SAGRARIO GAMEZ UNIT #: [id number] ROOM: 401 DOCTOR: MARCK DRAFT REPORT BIRTHDATE: [birth year] [facility] Test Date: 2019-02-05 Test Time: 19:05:02 Pat Name: SAGRARIO GAMEZ Department: Room: [facility] 1 Gender: F Formal Waiter/Waitress: Natalia Zuñiga : 1980 Requested By: TARAS BARRIENTOS Order Number: [id number] Reading MD: Christiano Barlow MD Measurements Intervals [place] Rate: 63 P: 63 [place]: 158 QRS: 84 QRSD: 83 T: 66 QT: 427 QTc: 438 Interpretive Statements Sinus rhythm Nonspecific T abnrm, anterolateral leads Subtle inferior ST elevation Compared to ECG 12/25/2018 17:09:12 No significant changes Electronically Signed On 02-06-2019 8:02:43 PDT by Christiano Barlow MD CM:EKGRPT:ELECTROCARDIOGRAM REPORT [id number] TARAS ACHARYA DRAFT REPORT TARAS BARRIENTOS
[2019-02-05 17:00] VITALS: BP 93/57
[2019-02-05 20:00] VITALS: BP 102/98
[2019-02-05 20:35] LABS: BASO # 0.1 10*3/uL (0.0-0.1); BASO % 0.8 % (0.0-1.0); EOS # 0.4 10*3/uL (0.0-0.4); EOS % 4.9 % (1.0-4.0); HEMATOCRIT 33.7 % (37.0-47.0); HEMOGLOBIN 9.6 g/dl (12.0-16.0); LYMPH # 2.5 10*3/uL (1.3-4.4); LYMPH % 33.9 % (27.0-41.0); MEAN CELL VOLUME 92.3 fl (81.0-99.0); MEAN CORPUSCULAR HGB 26.3 pg (27.0-31.0); MEAN CORPUSCULAR HGB CONC 28.5 g/dl (33.0-37.0); MEAN PLATELET VOLUME 11.2 fl (9.6-12.3); MONO # 1.1 10*3/uL (0.1-1.0); MONO % 15.7 % (3.0-9.0); NEUT # 3.2 10*3/uL (2.3-7.9); NEUT % 44.4 % (47.0-73.0); PLATELET COUNT AUTOMATED 214 10*3/uL (130-400); RED BLOOD COUNT 3.65 10*6/uL (4.10-5.10); RED CELL DISTRI WIDTH 15.1 % (0-14.5); WHITE BLOOD COUNT 7.3 10*3/uL (4.8-10.8)
[2019-02-05 21:01] LABS: ALBUMIN 2.9 gm/dl (3.1-4.5); ALKALINE PHOSPHATASE 57 U/L (45-117); BETA-HCG, QUANT < 1.0 mIU/mL (1-3); BUN 9 mg/dl (7-24); CHLORIDE 112 mmol/L (98-107); CREATININE 0.96 mg/dL (0.55-1.02); POTASSIUM 4.9 mmol/L (3.5-5.1); SGOT/AST 26 IU/L (3-35); SGPT/ALT 27 U/L (12-78); SODIUM 140 mmol/L (136-145); TOTAL PROTEIN 7.6 gm/dL (6.4-8.2)
[2019-02-05 23:11] LABS: BILIRUBIN NEGATIVE (NEGATIVE); BLOOD NEGATIVE (NEGATIVE); CLARITY CLEAR (CLEAR); COLOR YELLOW (YELLOW); GLUCOSE NEGATIVE (NEGATIVE); KETONE NEGATIVE (NEGATIVE); LEUKO ESTERASE NEGATIVE (NEGATIVE); NITRITE NEGATIVE (NEGATIVE); UROBILINOGEN 0.2 E.U./dl (0.2-1.0)
[2019-02-05 23:20] LABS: URINE AMPHETAMINES < 1000 (1000ng/ml); URINE BARBITURATES < 200 (200ng/ml); URINE BENZODIAZEPINES < 200 (200ng/ml); URINE CANNABINOIDS (THC) < 50 (50ng/ml); URINE COCAINE > 300 (300ng/ml); URINE METHADONE < 300 (300ng/ml); URINE OPIATES > 300 (300ng/ml); URINE PHENCYCLIDINE < 25 (25ng/ml)
[2019-02-05 23:27] LABS: BACTERIA TRACE; EPITHELIAL CELLS 25-30
[2019-02-05 23:28] LABS: WBC 0-2 wbc/hpf (0-5)
[2019-02-06] VITALS: BP 115/68
[2019-02-06 08:00] VITALS: BP 109/56
[2019-02-06 12:00] VITALS: BP 120/63
[2019-02-06 16:00] VITALS: BP 137/71
[2019-02-06 20:00] VITALS: BP 144/80
[2019-02-07] VITALS: BP 127/66
[2019-02-07 08:00] VITALS: BP 135/81
[2019-02-07 16:00] VITALS: BP 130/85
[2019-02-07 20:00] VITALS: BP 130/76; BP 136/96
[2019-02-08] VITALS: BP 124/65
[2019-02-08 06:39] LABS: BASO # 0.1 10*3/uL (0.0-0.1); BASO % 0.6 % (0.0-1.0); EOS % 0.1 % (1.0-4.0); HEMATOCRIT 32.9 % (37.0-47.0); HEMOGLOBIN 10.3 g/dl (12.0-16.0); LYMPH # 2.3 10*3/uL (1.3-4.4); LYMPH % 27.7 % (27.0-41.0); MEAN CELL VOLUME 84.1 fl (81.0-99.0); MEAN CORPUSCULAR HGB 26.3 pg (27.0-31.0); MEAN CORPUSCULAR HGB CONC 31.3 g/dl (33.0-37.0); MEAN PLATELET VOLUME 10.9 fl (9.6-12.3); MONO # 0.7 10*3/uL (0.1-1.0); MONO % 8.1 % (3.0-9.0); NEUT # 5.2 10*3/uL (2.3-7.9); PLATELET COUNT AUTOMATED 301 10*3/uL (130-400); RED BLOOD COUNT 3.91 10*6/uL (4.10-5.10); RED CELL DISTRI WIDTH 15.2 % (0-14.5); WHITE BLOOD COUNT 8.2 10*3/uL (4.8-10.8)
[2019-02-08 07:02] LABS: BUN 19 mg/dl (7-24); CHLORIDE 109 mmol/L (98-107); CREATININE 0.99 mg/dL (0.55-1.02); POTASSIUM 3.8 mmol/L (3.5-5.1); SODIUM 140 mmol/L (136-145)
[2019-02-08 08:00] VITALS: BP 110/76
[2019-02-08 12:00] VITALS: BP 125/80
[2019-02-08 16:00] VITALS: BP 120/72
[2019-02-08 20:00] VITALS: BP 95/50
[2019-02-09] VITALS: BP 102/59
[2019-02-09 08:00] VITALS: BP 102/54
== END 2019-02-09 11:45 | disposition home or self-care (01) | DRG 897 ==
LOC: 4E 15:49
PROVIDERS: Hospitalist; Internal Medicine; ADMIT Internal Medicine
DX: F11.23 Opioid dependence with withdrawal (principal); E44.0 Moderate protein-calorie malnutrition; Z68.44 Body mass index [BMI] 60.0-69.9, adult; J45.909 Unspecified asthma, uncomplicated; F14.10 Cocaine abuse, uncomplicated; F41.9 Anxiety disorder, unspecified; F19.10 Other psychoactive substance abuse, uncomplicated; R00.1 Bradycardia, unspecified; R00.0 Tachycardia, unspecified; R10.9 Unspecified abdominal pain; F17.210 Nicotine dependence, cigarettes, uncomplicated; E87.8 Other disorders of electrolyte and fluid balance, not elsewhere classified; Z86.718 Personal history of other venous thrombosis and embolism; Z86.711 Personal history of pulmonary embolism; Z82.49 Family history of ischemic heart disease and other diseases of the circulatory system; Z80.3 Family history of malignant neoplasm of breast; Z71.6 Tobacco abuse counseling

== ENCOUNTER 2019-05-17 10:03 | Emergency (ER) | payer OTHER ==
[~2019-05-17] VITALS: Wt 70.3 kg
[2019-05-17 10:03] VITALS: BP 121/103
[2019-05-17] MEDS ORDERED: CEPHALEXIN500 M1 PO (13:05)
[2019-05-17] MEDS ORDERED: NAPROSYN500 MG PO (13:05)
== END 2019-05-17 13:35 | disposition home or self-care (01) ==
LOC: ED 10:03
DX: L03.113 Cellulitis of right upper limb (principal); R51 Headache; R50.9 Fever, unspecified; F17.210 Nicotine dependence, cigarettes, uncomplicated

== ENCOUNTER 2021-03-01 16:43 | Emergency (ER) | payer OTHER ==
[~2021-03-01] VITALS: Ht 180.3 cm; Wt 68.0 kg
[~2021-03-01 16:43] MED LIST changes: +CEPHALEXIN500 M1 PO
[2021-03-01 18:06] LABS: BASO # 0.1 10*3/uL (0.0-0.1); BASO % 0.8 % (0.0-1.0); EOS # 0.3 10*3/uL (0.0-0.4); EOS % 4.1 % (1.0-4.0); HEMATOCRIT 31.5 % (37.0-47.0); LYMPH # 2.4 10*3/uL (1.3-4.4); LYMPH % 37.7 % (27.0-41.0); MEAN CELL VOLUME 85.4 fl (81.0-99.0); MEAN CORPUSCULAR HGB 26.6 pg (27.0-31.0); MEAN CORPUSCULAR HGB CONC 31.1 g/dl (33.0-37.0); MEAN PLATELET VOLUME 10.3 fl (9.6-12.3); MONO # 0.5 10*3/uL (0.1-1.0); NEUT # 3.1 10*3/uL (2.3-7.9); NEUT % 49.1 % (47.0-73.0); PLATELET COUNT AUTOMATED 215 10*3/uL (130-400); RED BLOOD COUNT 3.69 10*6/uL (4.10-5.10); WHITE BLOOD COUNT 6.4 10*3/uL (4.8-10.8)
[2021-03-01 18:22] LABS: ALBUMIN 2.5 gm/dl (3.1-4.5); ALKALINE PHOSPHATASE 64 U/L (45-117); BUN 12 mg/dl (7-24); CHLORIDE 107 mmol/L (98-107); CREATININE 0.82 mg/dL (0.55-1.02); POTASSIUM 3.7 mmol/L (3.5-5.1); SGOT/AST 23 IU/L (3-35); SGPT/ALT 21 U/L (12-78); SODIUM 139 mmol/L (136-145)
[2021-03-01 18:24] LABS: ETHYL ALCOHOL < 3.0 mg/dl (<3); TROPONIN I < 0.015 ng/ml (<0.045)
[2021-03-01 19:31] VITALS: BP 112/61
== END 2021-03-02 00:51 ==
LOC: ED 16:43
PROVIDERS: Emergency Medicine
DX: R05 Cough (principal); Z20.822 Contact with and (suspected) exposure to COVID-19; R06.02 Shortness of breath; F17.210 Nicotine dependence, cigarettes, uncomplicated; Z02.89 Encounter for other administrative examinations

== ENCOUNTER 2021-03-31 22:07 | Emergency (ER) | payer OTHER | END 2021-03-31 23:31 | disposition left against medical advice (07) | LOC: ED 22:07 | DX: H57.89 Other specified disorders of eye and adnexa (principal); H92.01 Otalgia, right ear; Z53.21 Procedure and treatment not carried out due to patient leaving prior to being seen by health care provider ==

== ENCOUNTER 2021-05-18 09:23 | Inpatient (IN) | payer OTHER ==
[~2021-05-18] VITALS: Ht 180.3 cm; Wt 76.3 kg
[2021-05-18 09:43] VITALS: BP 100/70
[2021-05-18 10:42] LABS: BASO # 0.1 10*3/uL (0.0-0.1); BASO % 0.8 % (0.0-1.0); EOS # 0.2 10*3/uL (0.0-0.4); EOS % 3.4 % (1.0-4.0); HEMATOCRIT 38.9 % (37.0-47.0); LYMPH # 2.9 10*3/uL (1.3-4.4); LYMPH % 46.9 % (27.0-41.0); MEAN CELL VOLUME 90.3 fl (81.0-99.0); MEAN CORPUSCULAR HGB 27.8 pg (27.0-31.0); MEAN CORPUSCULAR HGB CONC 30.8 g/dl (33.0-37.0); MEAN PLATELET VOLUME 10.5 fl (9.6-12.3); MONO # 0.6 10*3/uL (0.1-1.0); MONO % 8.8 % (3.0-9.0); NEUT # 2.5 10*3/uL (2.3-7.9); NEUT % 39.8 % (47.0-73.0); PLATELET COUNT AUTOMATED 255 10*3/uL (130-400); RED BLOOD COUNT 4.31 10*6/uL (4.10-5.10); RED CELL DISTRI WIDTH 14.7 % (0-14.5); WHITE BLOOD COUNT 6.2 10*3/uL (4.8-10.8)
[2021-05-18 10:57] LABS: ALBUMIN 3.1 gm/dl (3.1-4.5); ALKALINE PHOSPHATASE 59 U/L (45-117); BUN 12 mg/dl (7-24); CHLORIDE 106 mmol/L (98-107); CREATININE 0.79 mg/dL (0.55-1.02); POTASSIUM 3.7 mmol/L (3.5-5.1); SGOT/AST 25 IU/L (3-35); SGPT/ALT 35 U/L (12-78); SODIUM 140 mmol/L (136-145)
[2021-05-18 11:03] LABS: BILIRUBIN Negative (Negative); BLOOD 3+ (Negative); CLARITY Cloudy (Clear); COLOR Yellow (Yellow); GLUCOSE Negative (Negative); KETONE Trace (Negative); LEUKO ESTERASE Negative (Negative); NITRITE Negative (Negative)
[2021-05-18 11:14] LABS: BACTERIA 3+; CALCIUM OXALATE CRYSTALS 3+; RBC TNTC rbc/hpf (0-2)
[2021-05-18 11:15] LABS: ETHYL ALCOHOL < 3.0 mg/dl (<3)
[2021-05-18 11:23] LABS: URINE AMPHETAMINES > 1000 (1000ng/ml); URINE BARBITURATES < 200 (200ng/ml); URINE BENZODIAZEPINES < 200 (200ng/ml); URINE CANNABINOIDS (THC) < 50 (50ng/ml); URINE COCAINE < 300 (300ng/ml); URINE METHADONE < 300 (300ng/ml); URINE OPIATES < 300 (300ng/ml)
[2021-05-18 11:32] LABS: URINE PHENCYCLIDINE < 25 (25ng/ml)
[2021-05-18 16:08] VITALS: BP 110/70
[2021-05-19 12:00] VITALS: BP 139/62
[2021-05-19 12:08] VITALS: BP 106/48
[2021-05-19 16:00] VITALS: BP 126/64
== END 2021-05-19 17:38 | disposition left against medical advice (07) | DRG 770 ==
LOC: ED 09:23 → EDHOLD 11:30 → 4E 05-19 11:39
PROVIDERS: Emergency Medicine; ADMIT Student in an Organized Health Care Education/Training Program; ATTEND Student in an Organized Health Care Education/Training Program
DX: F11.93 Opioid use, unspecified with withdrawal (principal); R82.71 Bacteriuria; R31.29 Other microscopic hematuria; F17.219 Nicotine dependence, cigarettes, with unspecified nicotine-induced disorders; E83.51 Hypocalcemia; F41.9 Anxiety disorder, unspecified; J45.909 Unspecified asthma, uncomplicated; F15.10 Other stimulant abuse, uncomplicated; Z86.711 Personal history of pulmonary embolism; Z80.3 Family history of malignant neoplasm of breast; Z82.49 Family history of ischemic heart disease and other diseases of the circulatory system; Z83.3 Family history of diabetes mellitus; Z86.718 Personal history of other venous thrombosis and embolism

== ENCOUNTER 2021-06-15 17:07 | Emergency (ER) | payer OTHER | END 2021-06-15 18:54 | disposition left against medical advice (07) | LOC: ED 17:07 | DX: R51.9 Headache, unspecified (principal); Z53.21 Procedure and treatment not carried out due to patient leaving prior to being seen by health care provider ==

== ENCOUNTER 2021-12-20 14:28 | Emergency (ER) | payer OTHER ==
[~2021-12-20 14:28] MED LIST changes: +OMNICEF300 MG PO; +ZITHROMAX250 MG PO
[2021-12-20 17:10] LABS: BILIRUBIN Negative (Negative); BLOOD Negative (Negative); CLARITY Cloudy (Clear); COLOR Yellow (Yellow); GLUCOSE Negative (Negative); KETONE Trace (Negative); LEUKO ESTERASE Negative (Negative); NITRITE Negative (Negative); SPECIFIC GRAVITY 1.025 (1.001-1.030)
[2021-12-20 17:18] LABS: URINE AMPHETAMINES > 1000 (1000ng/ml); URINE BARBITURATES < 200 (200ng/ml); URINE BENZODIAZEPINES < 200 (200ng/ml); URINE CANNABINOIDS (THC) < 50 (50ng/ml); URINE COCAINE < 300 (300ng/ml); URINE METHADONE < 300 (300ng/ml); URINE OPIATES < 300 (300ng/ml)
[2021-12-20 17:20] LABS: BASO # 0.1 10*3/uL (0.0-0.1); BASO % 0.9 % (0.0-1.0); EOS # 0.2 10*3/uL (0.0-0.4); EOS % 3.2 % (1.0-4.0); HEMATOCRIT 40.1 % (37.0-47.0); LYMPH # 2.3 10*3/uL (1.3-4.4); LYMPH % 41.5 % (27.0-41.0); MEAN CELL VOLUME 91.6 fl (81.0-99.0); MEAN CORPUSCULAR HGB 28.3 pg (27.0-31.0); MEAN CORPUSCULAR HGB CONC 30.9 g/dl (33.0-37.0); MEAN PLATELET VOLUME 10.1 fl (9.6-12.3); MONO # 0.4 10*3/uL (0.1-1.0); MONO % 7.4 % (3.0-9.0); NEUT # 2.6 10*3/uL (2.3-7.9); NEUT % 46.8 % (47.0-73.0); PLATELET COUNT AUTOMATED 308 10*3/uL (130-400); RED BLOOD COUNT 4.38 10*6/uL (4.10-5.10); WHITE BLOOD COUNT 5.6 10*3/uL (4.8-10.8)
[2021-12-20 17:23] LABS: URINE PHENCYCLIDINE < 25 (25ng/ml)
[2021-12-20 17:38] LABS: ALKALINE PHOSPHATASE 48 U/L (45-117); BUN 10 mg/dl (7-24); CHLORIDE 109 mmol/L (98-107); CPK 341 U/L (26-192); CREATININE 1.02 mg/dL (0.55-1.02); ETHYL ALCOHOL < 3.0 mg/dl (<3); POTASSIUM 3.8 mmol/L (3.5-5.1); SGOT/AST 34 IU/L (3-35); SGPT/ALT 36 U/L (12-78); SODIUM 142 mmol/L (136-145); TOTAL PROTEIN 8.2 gm/dL (6.4-8.2)
[2021-12-20 19:26] LABS: BACTERIA TRACE; RBC 0-2 rbc/hpf (0-2)
[2021-12-20 20:55] VITALS: BP 135/70
== END 2021-12-20 23:28 ==
LOC: ED 14:28
PROVIDERS: Emergency Medicine
DX: F31.9 Bipolar disorder, unspecified (principal); Z20.822 Contact with and (suspected) exposure to COVID-19; F15.951 Other stimulant use, unspecified with stimulant-induced psychotic disorder with hallucinations; E16.2 Hypoglycemia, unspecified; Z90.89 Acquired absence of other organs; F17.210 Nicotine dependence, cigarettes, uncomplicated

== ENCOUNTER 2022-01-03 20:13 | Emergency (ER) | payer OTHER ==
[~2022-01-03] VITALS: Ht 180.3 cm; Wt 70.3 kg
[2022-01-03 23:53] LABS: HEMATOCRIT 35.4 % (37.0-47.0); MEAN CELL VOLUME 94.1 fl (81.0-99.0); MEAN CORPUSCULAR HGB 28.5 pg (27.0-31.0); MEAN CORPUSCULAR HGB CONC 30.2 g/dl (33.0-37.0); MEAN PLATELET VOLUME 10.7 fl (9.6-12.3); PLATELET COUNT AUTOMATED 146 10*3/uL (130-400); RED BLOOD COUNT 3.76 10*6/uL (4.10-5.10); RED CELL DISTRI WIDTH 14.6 % (0-14.5); WHITE BLOOD COUNT 3.4 10*3/uL (4.8-10.8)
[2022-01-04 00:05] LABS: MANUAL DIFF REFLEX YES
[2022-01-04 00:15] LABS: ALKALINE PHOSPHATASE 41 U/L (45-117); BUN 11 mg/dl (7-24); CHLORIDE 111 mmol/L (98-107); CREATININE 0.76 mg/dL (0.55-1.02); POTASSIUM 3.8 mmol/L (3.5-5.1); SGOT/AST 30 IU/L (3-35); SGPT/ALT 22 U/L (12-78); SODIUM 141 mmol/L (136-145); TOTAL PROTEIN 6.3 gm/dL (6.4-8.2)
[2022-01-04 00:19] LABS: ATYPICAL LYMPHS 1 % (0-0); PLATELET SUFFICIENCY LOW (NORMAL); TOTAL CELLS COUNTED 100 #CELLS
[2022-01-04 04:00] VITALS: BP 101/58
[2022-01-04] MEDS ORDERED: LEVOFLOXACIN750 M2 PO (06:02)
[2022-01-04] MEDS ORDERED: KETOROLAC10 MG PO (06:02)
== END 2022-01-04 06:03 | disposition home or self-care (01) ==
LOC: ED 20:13
PROVIDERS: Emergency Medicine
DX: J18.9 Pneumonia, unspecified organism (principal); Z20.822 Contact with and (suspected) exposure to COVID-19; R09.1 Pleurisy; F17.210 Nicotine dependence, cigarettes, uncomplicated; F14.10 Cocaine abuse, uncomplicated; Z79.2 Long term (current) use of antibiotics

== ENCOUNTER 2022-07-06 06:40 | Emergency (ER) | payer OTHER ==
[~2022-07-06] VITALS: Ht 180.3 cm; Wt 79.9 kg
[~2022-07-06 06:40] MED LIST changes: +KETOROLAC10 MG PO; +LEVOFLOXACIN750 M2 PO
[2022-07-06 06:45] VITALS: BP 149/126
[2022-07-06 07:17] LABS: BASO # 0.1 10*3/uL (0.0-0.1); BASO % 0.7 % (0.0-1.0); EOS # 0.1 10*3/uL (0.0-0.4); EOS % 1.7 % (1.0-4.0); HEMATOCRIT 34.3 % (37.0-47.0); LYMPH # 1.8 10*3/uL (1.3-4.4); LYMPH % 24.7 % (27.0-41.0); MEAN CELL VOLUME 87.9 fl (81.0-99.0); MEAN CORPUSCULAR HGB 27.4 pg (27.0-31.0); MEAN CORPUSCULAR HGB CONC 31.2 g/dl (33.0-37.0); MEAN PLATELET VOLUME 10.8 fl (9.6-12.3); MONO # 0.7 10*3/uL (0.1-1.0); MONO % 9.2 % (3.0-9.0); NEUT # 4.6 10*3/uL (2.3-7.9); NEUT % 63.6 % (47.0-73.0); PLATELET COUNT AUTOMATED 209 10*3/uL (130-400); RED CELL DISTRI WIDTH 15.2 % (0-14.5); WHITE BLOOD COUNT 7.2 10*3/uL (4.8-10.8)
[2022-07-06 07:29] LABS: ACT PARTIAL THROMBO TIME 31.6 SECONDS (20.0-32.1)
[2022-07-06 07:37] LABS: ALKALINE PHOSPHATASE 55 U/L (46-116); BUN 13 mg/dl (9-23); CHLORIDE 102 mmol/L (98-107); POTASSIUM 4.1 mmol/L (3.4-5.1); SGPT/ALT 25 U/L (10-49); TOTAL PROTEIN 7.7 gm/dL (6.0-8.0)
[2022-07-06 07:38] LABS: ETHYL ALCOHOL < 3.0 mg/dl (<3)
== END 2022-07-06 11:04 ==
LOC: ED 06:40
PROVIDERS: Emergency Medicine
DX: R07.89 Other chest pain (principal); Z90.89 Acquired absence of other organs; F17.210 Nicotine dependence, cigarettes, uncomplicated; F14.10 Cocaine abuse, uncomplicated; F11.20 Opioid dependence, uncomplicated; F19.20 Other psychoactive substance dependence, uncomplicated; F31.9 Bipolar disorder, unspecified

== ENCOUNTER 2022-08-04 20:06 | Emergency (ER) | payer OTHER ==
[~2022-08-04] VITALS: Ht 170.1 cm; Wt 72.6 kg
[2022-08-04 20:38] VITALS: BP 117/85
[2022-08-04 21:34] LABS: BASO % 0.5 % (0.0-1.0); EOS # 0.1 10*3/uL (0.0-0.4); EOS % 1.3 % (1.0-4.0); HEMATOCRIT 36.6 % (37.0-47.0); LYMPH # 2.2 10*3/uL (1.3-4.4); LYMPH % 29.3 % (27.0-41.0); MEAN CELL VOLUME 89.7 fl (81.0-99.0); MEAN CORPUSCULAR HGB 27.9 pg (27.0-31.0); MEAN CORPUSCULAR HGB CONC 31.1 g/dl (33.0-37.0); MEAN PLATELET VOLUME 10.7 fl (9.6-12.3); MONO # 0.6 10*3/uL (0.1-1.0); MONO % 7.4 % (3.0-9.0); NEUT # 4.6 10*3/uL (2.3-7.9); NEUT % 61.2 % (47.0-73.0); PLATELET COUNT AUTOMATED 229 10*3/uL (130-400); RED BLOOD COUNT 4.08 10*6/uL (4.10-5.10); RED CELL DISTRI WIDTH 14.2 % (0-14.5); WHITE BLOOD COUNT 7.6 10*3/uL (4.8-10.8)
[2022-08-04 21:50] LABS: ALKALINE PHOSPHATASE 56 U/L (46-116); BUN 10 mg/dl (9-23); CHLORIDE 106 mmol/L (98-107); POTASSIUM 4.5 mmol/L (3.4-5.1); SGPT/ALT 14 U/L (10-49); TOTAL PROTEIN 7.8 gm/dL (6.0-8.0)
[2022-08-04] MEDS ORDERED: VIBRAMYCIN100 MG PO (23:04)
== END 2022-08-05 00:06 | disposition home or self-care (01) ==
LOC: ED 20:06
PROVIDERS: Nurse Practitioner Family
DX: J06.9 Acute upper respiratory infection, unspecified (principal); J45.909 Unspecified asthma, uncomplicated; Z87.442 Personal history of urinary calculi; Z98.890 Other specified postprocedural states; Z90.89 Acquired absence of other organs; F17.210 Nicotine dependence, cigarettes, uncomplicated; F19.10 Other psychoactive substance abuse, uncomplicated; F14.10 Cocaine abuse, uncomplicated; Z20.822 Contact with and (suspected) exposure to COVID-19

== ENCOUNTER 2022-08-10 13:04 | Emergency (ER) | payer OTHER ==
[~2022-08-10] VITALS: Ht 180.3 cm; Wt 72.6 kg
== END 2022-08-10 13:25 | disposition left against medical advice (07) ==
LOC: ED 13:04
DX: T50.904A Poisoning by unspecified drugs, medicaments and biological substances, undetermined, initial encounter (principal); J45.909 Unspecified asthma, uncomplicated; Z87.442 Personal history of urinary calculi; Z98.890 Other specified postprocedural states; Z90.89 Acquired absence of other organs; F17.210 Nicotine dependence, cigarettes, uncomplicated; F14.10 Cocaine abuse, uncomplicated; F19.10 Other psychoactive substance abuse, uncomplicated; F11.20 Opioid dependence, uncomplicated; Y92.89 Other specified places as the place of occurrence of the external cause

== ENCOUNTER 2022-11-18 14:09 | Emergency (ER) | payer OTHER ==
[~2022-11-18] VITALS: Ht 180.3 cm; Wt 68.0 kg
[2022-11-18 14:31] VITALS: BP 142/75
[2022-11-18 15:56] LABS: BASO # 0.1 10*3/uL (0.0-0.1); BASO % 1.1 % (0.0-1.0); EOS # 0.2 10*3/uL (0.0-0.4); EOS % 3.6 % (1.0-4.0); HEMATOCRIT 34.6 % (37.0-47.0); LYMPH # 2.2 10*3/uL (1.3-4.4); LYMPH % 39.5 % (27.0-41.0); MEAN CELL VOLUME 89.6 fl (81.0-99.0); MEAN CORPUSCULAR HGB 27.7 pg (27.0-31.0); MEAN CORPUSCULAR HGB CONC 30.9 g/dl (33.0-37.0); MEAN PLATELET VOLUME 11.2 fl (9.6-12.3); MONO # 0.6 10*3/uL (0.1-1.0); NEUT # 2.5 10*3/uL (2.3-7.9); NEUT % 45.6 % (47.0-73.0); PLATELET COUNT AUTOMATED 203 10*3/uL (130-400); RED BLOOD COUNT 3.86 10*6/uL (4.10-5.10); RED CELL DISTRI WIDTH 13.9 % (0-14.5); WHITE BLOOD COUNT 5.5 10*3/uL (4.8-10.8)
[2022-11-18 16:17] LABS: ALKALINE PHOSPHATASE 54 U/L (46-116); BUN 17 mg/dl (9-23); CHLORIDE 103 mmol/L (98-107); POTASSIUM 4.4 mmol/L (3.4-5.1); SGPT/ALT 30 U/L (10-49); TOTAL PROTEIN 7.6 gm/dL (6.0-8.0)
[2022-11-18] MEDS ORDERED: VIBRAMYCIN100 MG PO (17:40)
[2022-11-18] MEDS ORDERED: XARE15TA PO (17:40)
[2022-11-18 18:21] LABS: B-hCG (QUALITATIVE) NEGATIVE (NEGATIVE)
== END 2022-11-18 17:47 | disposition home or self-care (01) ==
LOC: ED 14:09
PROVIDERS: Internal Medicine
DX: R79.1 Abnormal coagulation profile (principal); J45.909 Unspecified asthma, uncomplicated; Z87.442 Personal history of urinary calculi; F14.10 Cocaine abuse, uncomplicated; F19.10 Other psychoactive substance abuse, uncomplicated; Z90.89 Acquired absence of other organs; F11.20 Opioid dependence, uncomplicated; F17.210 Nicotine dependence, cigarettes, uncomplicated

== ENCOUNTER 2023-02-20 10:13 | Inpatient (IN) | payer OTHER ==
[~2023-02-20] VITALS: Ht 180.3 cm; Wt 71.4 kg
[~2023-02-20 10:13] MED LIST changes: +SEPTDS PO; +XARE15TA PO
[2023-02-20 10:24] VITALS: BP 110/63
[2023-02-20 11:09] LABS: BILIRUBIN Negative (Negative); BLOOD Trace-Intact (Negative); CLARITY Clear (Clear); COLOR Yellow (Yellow); GLUCOSE Negative (Negative); KETONE Trace (Negative); LEUKO ESTERASE Trace (Negative); NITRITE Negative (Negative); PH 6.5 (4.5-8.0); SPECIFIC GRAVITY 1.015 (1.001-1.030)
[2023-02-20 11:18] LABS: BACTERIA 1+; RBC 16-20 rbc/hpf (0-2)
[2023-02-20 11:19] LABS: URINE AMPHETAMINES Positive (1000ng/ml); URINE BARBITURATES Negative (200ng/ml); URINE BENZODIAZEPINES Negative (200ng/ml); URINE CANNABINOIDS (THC) Negative (50ng/ml); URINE COCAINE Positive (300ng/ml); URINE METHADONE Negative (300ng/ml); URINE OPIATES Negative (300ng/ml); URINE PHENCYCLIDINE Negative (25ng/ml)
[2023-02-20 11:56] LABS: ALKALINE PHOSPHATASE 56 U/L (46-116); BUN 6 mg/dl (9-23); CHLORIDE 108 mmol/L (98-107); LIPASE 21 U/L (12-53); POTASSIUM 3.6 mmol/L (3.4-5.1); SGPT/ALT 19 U/L (10-49); TOTAL PROTEIN 7.6 gm/dL (6.0-8.0)
[2023-02-20 11:57] LABS: ACT PARTIAL THROMBO TIME 27.9 SECONDS (20.0-32.1); INTERNATIONAL NORM RATIO 1.1 (2.0-3.5)
[2023-02-20 11:58] LABS: BETA-HCG, QUANT < 3.0 mIU/mL (3-10)
[2023-02-20 13:23] LABS: BASO % 0.6 % (0.0-1.0); EOS # 0.1 10*3/uL (0.0-0.4); EOS % 1.9 % (1.0-4.0); HEMATOCRIT 37.3 % (37.0-47.0); LYMPH % 42.2 % (27.0-41.0); MEAN CELL VOLUME 88.4 fl (81.0-99.0); MEAN CORPUSCULAR HGB 27.7 pg (27.0-31.0); MEAN CORPUSCULAR HGB CONC 31.4 g/dl (33.0-37.0); MEAN PLATELET VOLUME 10.4 fl (9.6-12.3); MONO # 0.3 10*3/uL (0.1-1.0); MONO % 6.9 % (3.0-9.0); NEUT # 2.2 10*3/uL (2.3-7.9); NEUT % 48.2 % (47.0-73.0); PLATELET COUNT AUTOMATED 248 10*3/uL (130-400); RED BLOOD COUNT 4.22 10*6/uL (4.10-5.10); RED CELL DISTRI WIDTH 13.8 % (0-14.5); WHITE BLOOD COUNT 4.7 10*3/uL (4.8-10.8)
[2023-02-20 14:04] VITALS: BP 112/66
[2023-02-20 17:00] VITALS: BP 133/75
[2023-02-20 20:00] VITALS: BP 136/80
[2023-02-21 08:00] VITALS: BP 107/71
[2023-02-21 12:00] VITALS: BP 115/60
[2023-02-21 16:00] VITALS: BP 147/76
[2023-02-21 20:00] VITALS: BP 137/66
[2023-02-22] VITALS: BP 124/60
[2023-02-22 08:00] VITALS: BP 131/73
[2023-02-22 12:00] VITALS: BP 131/72
[2023-02-22 16:13] VITALS: BP 137/72
[2023-02-22 20:00] VITALS: BP 126/69
[2023-02-23] VITALS: BP 132/82
[2023-02-23 08:00] VITALS: BP 145/85
[2023-02-23 12:00] VITALS: BP 140/76
[2023-02-23 16:00] VITALS: BP 142/80
[2023-02-23 20:00] VITALS: BP 105/59
[2023-02-24] VITALS: BP 95/60
[2023-02-24 07:14] LABS: BASO # 0.1 10*3/uL (0.0-0.1); EOS # 0.1 10*3/uL (0.0-0.4); EOS % 1.6 % (1.0-4.0); HEMATOCRIT 37.9 % (37.0-47.0); LYMPH # 3.3 10*3/uL (1.3-4.4); LYMPH % 52.2 % (27.0-41.0); MEAN CELL VOLUME 87.5 fl (81.0-99.0); MEAN CORPUSCULAR HGB 27.9 pg (27.0-31.0); MEAN CORPUSCULAR HGB CONC 31.9 g/dl (33.0-37.0); MEAN PLATELET VOLUME 10.3 fl (9.6-12.3); MONO # 0.8 10*3/uL (0.1-1.0); MONO % 13.2 % (3.0-9.0); NEUT % 31.8 % (47.0-73.0); PLATELET COUNT AUTOMATED 283 10*3/uL (130-400); RED BLOOD COUNT 4.33 10*6/uL (4.10-5.10); RED CELL DISTRI WIDTH 14.1 % (0-14.5); WHITE BLOOD COUNT 6.2 10*3/uL (4.8-10.8)
[2023-02-24 07:42] LABS: ALKALINE PHOSPHATASE 49 U/L (46-116); BUN 17 mg/dl (9-23); CHLORIDE 109 mmol/L (98-107); POTASSIUM 4.2 mmol/L (3.4-5.1); SGPT/ALT 10 U/L (10-49); TOTAL PROTEIN 7.1 gm/dL (6.0-8.0)
[2023-02-24 08:00] VITALS: BP 96/50
[2023-02-24] MEDS ORDERED: NATURE'S BLEND100 M2 PO (09:29)
[2023-02-24] MEDS ORDERED: ZYPREXA2.5 MG PO (09:29)
[2023-02-24] MEDS ORDERED: BUPROPION HYDR100 M3 PO (09:29)
[2023-02-24] MEDS ORDERED: NATURE'S BLEND F1 MG PO (09:29)
[2023-02-24] MEDS ORDERED: TAB-A-VITE TA400 MCG PO (09:29)
== END 2023-02-24 10:30 | disposition home or self-care (01) | DRG 773 ==
LOC: ED 10:13 → EDHOLD 11:02 → 4E 11:02
PROVIDERS: Emergency Medicine; Student in an Organized Health Care Education/Training Program; ADMIT Family Medicine; ATTEND Family Medicine
DX: F11.23 Opioid dependence with withdrawal (principal); F22 Delusional disorders; F15.151 Other stimulant abuse with stimulant-induced psychotic disorder with hallucinations; F33.9 Major depressive disorder, recurrent, unspecified; F14.10 Cocaine abuse, uncomplicated; J45.909 Unspecified asthma, uncomplicated; F41.1 Generalized anxiety disorder; F17.210 Nicotine dependence, cigarettes, uncomplicated; Z79.899 Other long term (current) drug therapy; Z82.49 Family history of ischemic heart disease and other diseases of the circulatory system; Z80.3 Family history of malignant neoplasm of breast; Z83.3 Family history of diabetes mellitus; Z82.3 Family history of stroke; Z86.718 Personal history of other venous thrombosis and embolism; Z86.711 Personal history of pulmonary embolism; Z87.01 Personal history of pneumonia (recurrent); Z87.440 Personal history of urinary (tract) infections

== ENCOUNTER 2023-09-04 13:12 | Emergency (ER) | payer OTHER ==
[~2023-09-04] VITALS: Ht 180.3 cm; Wt 70.3 kg
[~2023-09-04 13:12] MED LIST changes: +BUPROPION HYDR100 M3 PO; +NATURE'S BLEND F1 MG PO; +NATURE'S BLEND100 M2 PO; +TAB-A-VITE TA400 MCG PO; +ZYPREXA2.5 MG PO
[2023-09-04 13:27] VITALS: BP 125/91
[2023-09-04 14:45] LABS: BASO % 0.9 % (0.0-1.0); EOS # 0.1 10*3/uL (0.0-0.4); EOS % 2.6 % (1.0-4.0); HEMATOCRIT 33.1 % (37.0-47.0); LYMPH # 1.4 10*3/uL (1.3-4.4); MEAN CELL VOLUME 90.2 fl (81.0-99.0); MEAN CORPUSCULAR HGB 27.5 pg (27.0-31.0); MEAN CORPUSCULAR HGB CONC 30.5 g/dl (33.0-37.0); MEAN PLATELET VOLUME 9.5 fl (9.6-12.3); MONO # 0.4 10*3/uL (0.1-1.0); MONO % 8.8 % (3.0-9.0); NEUT # 2.7 10*3/uL (2.3-7.9); NEUT % 58.5 % (47.0-73.0); PLATELET COUNT AUTOMATED 327 10*3/uL (130-400); RED BLOOD COUNT 3.67 10*6/uL (4.10-5.10); RED CELL DISTRI WIDTH 13.2 % (0-14.5); WHITE BLOOD COUNT 4.7 10*3/uL (4.8-10.8)
[2023-09-04 15:00] LABS: BUN 10 mg/dl (9-23); CHLORIDE 107 mmol/L (98-107); POTASSIUM 4.1 mmol/L (3.4-5.1)
[2023-09-04 15:39] LABS: BILIRUBIN Negative (Negative); BLOOD Trace-Lysed (Negative); CLARITY Clear (Clear); COLOR Yellow (Yellow); GLUCOSE Negative (Negative); KETONE Negative (Negative); LEUKO ESTERASE Negative (Negative); NITRITE Negative (Negative); SPECIFIC GRAVITY <= 1.005 (1.001-1.030); UROBILINOGEN 0.2 E.U./dl (0.0-1.0)
[2023-09-04 15:46] LABS: URINE AMPHETAMINES Negative (1000ng/ml); URINE BARBITURATES Negative (200ng/ml); URINE BENZODIAZEPINES Negative (200ng/ml); URINE CANNABINOIDS (THC) Negative (50ng/ml); URINE COCAINE Negative (300ng/ml); URINE METHADONE Negative (300ng/ml); URINE OPIATES Negative (300ng/ml); URINE PHENCYCLIDINE Negative (25ng/ml)
[2023-09-04 16:08] LABS: CALCIUM OXALATE CRYSTALS 1+; WBC 0-2 wbc/hpf (0-5)
[2023-09-04] MEDS ORDERED: SODIUM CHLORIDE 0.9% 1,000 ML IV ONE (16:25)
[2023-09-04] MEDS ORDERED: Vancomycin Hydrochloride 1,000 MG in SODIUM CHLORIDE 0.9% 250 ML IV ONE (16:30)
[2023-09-04] MEDS ORDERED: Ceftriaxone Sodium 1 GM/10 ML SYR IV ONE (16:30)
[2023-09-04] MEDS ORDERED: Magnesium Hydroxide 30 ML UDC PO PRN (17:10)
[2023-09-04] MEDS ORDERED: ACETAMINOPHEN 325 MG TAB PO PRN (17:10)
[2023-09-04] MEDS ORDERED: BISACODYL 5 MG TAB PO PRN (17:10)
[2023-09-04] MEDS ORDERED: AMOX-CLAV 875-1 EACH PO (17:23)
[2023-09-04] MEDS ORDERED: Water, Sterile 10 ML VIAL ONE (17:32)
[2023-09-05] MEDS ORDERED: Enoxaparin Sodium 40 MG/0.4 ML SYR SC SCH (10:00)
== END 2023-09-04 17:46 | disposition home or self-care (01) ==
LOC: ED 13:12 → EDHOLD 16:34 → 5E 17:23
PROVIDERS: Nurse Practitioner Family
DX: I83.028 Varicose veins of left lower extremity with ulcer other part of lower leg (principal); J45.909 Unspecified asthma, uncomplicated; Z87.442 Personal history of urinary calculi; Z90.89 Acquired absence of other organs; F17.210 Nicotine dependence, cigarettes, uncomplicated; F15.90 Other stimulant use, unspecified, uncomplicated; F19.10 Other psychoactive substance abuse, uncomplicated; F11.20 Opioid dependence, uncomplicated

== ENCOUNTER 2024-03-29 19:34 | Emergency (ER) | payer OTHER ==
[~2024-03-29] VITALS: Ht 180.3 cm; Wt 70.3 kg
[~2024-03-29 19:34] MED LIST changes: +AMOX-CLAV 875-1 EACH PO
[2024-03-29 19:46] VITALS: BP 129/77
== END 2024-03-29 22:00 | disposition left against medical advice (07) ==
LOC: ED 19:34
DX: B34.9 Viral infection, unspecified (principal); J45.909 Unspecified asthma, uncomplicated; F17.210 Nicotine dependence, cigarettes, uncomplicated; F15.90 Other stimulant use, unspecified, uncomplicated; F19.10 Other psychoactive substance abuse, uncomplicated; F11.20 Opioid dependence, uncomplicated; Z90.89 Acquired absence of other organs; Z53.29 Procedure and treatment not carried out because of patient's decision for other reasons